=== PATIENT | female | born 1980 | race Hispanic/Latino ===

== ENCOUNTER 2021-03-02 09:03 | Outpatient (CLI) | payer OTHER | END 2021-03-02 09:04 | disposition home or self-care (01) | LOC: CSHMRI 09:03 | PROVIDERS: ATTEND Otolaryngology Otology & Neurotology | DX: H81.09 Meniere's disease, unspecified ear (principal); H91.8X2 Other specified hearing loss, left ear | CPT/HCPCS: 70553 ==